=== PATIENT | female | born 1950 | race Caucasian/White ===

== ENCOUNTER 2018-06-24 14:12 | Emergency (ER) | payer BC, OTHER ==
[~2018-06-24] VITALS: Ht 162.6 cm; Wt 73.5 kg
[~2018-06-24 14:12] MED LIST: HORMONE REPLACEMENT; PROSCAR 5MG TABL5 MG PO
[2018-06-24 14:58] LABS: ABSOLUTE NEUTROPHILS 8.9 thou/uL (1.4-8.2); BASOPHILS 0.3 % (0.0-2.0); HEMATOCRIT 40.8 % (37.0-47.0); HEMOGLOBIN 13.8 gm/dL (12.0-15.0); MCH 30.4 pg (26.0-34.0); MCHC 33.9 g/dL (28.0-37.0); MCV 89.7 fL (80.0-100.0); MONOCYTES 3.6 % (1.0-8.0); PLATELET COUNT 226 thou/uL (150-400); POLYS 88.1 % (36.0-66.0); RBC 4.54 mil/uL (4.20-5.00); RDW 13.3 % (10.5-14.5); WBC 10.1 thou/uL (4.0-11.0)
[2018-06-24 15:07] LABS: ANION GAP 6 mmol/L (7-16); BUN 26 mg/dL (7-18); CALCIUM 9.4 mg/dL (8.5-10.1); CHLORIDE 100 mmol/L (98-107); CO2 28 mmol/L (21-32); CREATININE 1.3 mg/dL (0.6-1.0); GLUCOSE 123 mg/dL (74-106); POTASSIUM 3.9 mmol/L (3.5-5.1); SODIUM 134 mmol/L (136-145)
[2018-06-24 15:17] LABS: ALBUMIN 3.9 g/dL (3.4-5.0); LIPASE 82 U/L (73-393); SGOT 23 U/L (15-37); SGPT 37 U/L (30-65); TOTAL BILIRUBIN 0.6 mg/dL (<0.1-1.0); TOTAL PROTEIN 7.2 g/dL (6.4-8.2); TROPONIN-I <0.06 ng/mL (<0.06)
[2018-06-24 15:28] LABS: URINE BILIRUBIN NEGATIVE (Negative); URINE BLOOD NEGATIVE (Negative); URINE CLARITY CLEAR; URINE COLOR YELLOW; URINE GLUCOSE-RANDOM* NEGATIVE (Negative); URINE KETONES TRACE (Negative); URINE LEUKOCYTES-REFLEX NEGATIVE (Negative); URINE NITRITE-REFLEX NEGATIVE (Negative); URINE PROTEIN (DIPSTICK) NEGATIVE (Negative); URINE SPECIFIC GRAVITY >= 1.030 (1.005-1.035); URINE UROBILINOGEN 0.2 E.U./dl (0.2-1.0)
[2018-06-24 17:22] VITALS: BP 120/63
--- NOTE | 2018-06-25 10:27 | EKG ---
[place] [address] [facility] [place] [address] ELECTROCARDIOGRAM REPORT Name: PAULINA MANCIA [id number] ������������������ Admission: 06/24/18 ������������������ Attend Phys: Discharge: 06/24/18 ������������������ Date of : 54 Report #: [id number] ����������������������������������������������������������������� [id number] THIS REPORT FOR: //name// [facility] ED Test Date: 2018-06-24 Test Time: 14:48:54 Pat Name: PAULINA MANCIA Department: Room: Gender: F Certified Massage Therapist: : 1950 Requested By: Ambreen Coleman Order Number: [id number] MD: Shaan Bui Measurements Intervals [place] Rate: 59 P: 20 SC: 151 QRS: -7 QRSD: 93 T: 22 QT: 455 QTc: 451 Interpretive Statements Sinus bradycardia Nonspecific ST segment abnormality No previous ECG available for comparison Electronically Signed On 06-25-2018 10:27:01 CDT by Shaan Bui [email or web address] ��������������������������������������������� <ELECTRONICALLY SIGNED> ���������������������������������������� By: Shaan Bui MD, [facility] ��������������������������������������������� 06/25/18 1027 1448 1448 Shaan Bui MD, FACC /EPI
== END 2018-06-24 17:23 | disposition short-term general hospital (02) ==
LOC: ER 14:12
PROVIDERS: Student in an Organized Health Care Education/Training Program
DX: N13.2 Hydronephrosis with renal and ureteral calculous obstruction (principal); Z88.1 Allergy status to other antibiotic agents